=== PATIENT | female | born 1985 ===

== ENCOUNTER 2018-06-02 09:38 | Emergency (ER) | payer SELFPAY ==
[2018-06-02 09:52] VITALS: BP 141/88
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
[2018-06-02] MEDS ORDERED: Ketorolac INJ* 30 MG/ML 1 ML VIAL IM ONE (10:20)
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
== END 2018-06-02 11:23 | disposition home or self-care (01) ==
LOC: UCEAST 09:38
DX: S39.012A Strain of muscle, fascia and tendon of lower back, initial encounter (principal); M53.3 Sacrococcygeal disorders, not elsewhere classified; Z87.891 Personal history of nicotine dependence; X58.XXXA Exposure to other specified factors, initial encounter; Y93.89 Activity, other specified; Y92.9 Unspecified place or not applicable; W19.XXXA Unspecified fall, initial encounter
CPT/HCPCS: 72220; 99202; G0463; J1885